=== PATIENT | male | born 1940 | race Caucasian/White ===

== ENCOUNTER 2024-05-10 12:30 | Outpatient (CLI) | payer MEDICARE, BC | END 2024-05-10 12:31 | disposition home or self-care (01) | LOC: CSHWCC 12:30 | PROVIDERS: ATTEND Nurse Practitioner Family | DX: N30.40 Irradiation cystitis without hematuria (principal) | CPT/HCPCS: 99213; G0463 ==

== ENCOUNTER 2024-05-31 14:11 | Outpatient (CLI) | payer MEDICARE, BC | END 2024-05-31 14:12 | disposition home or self-care (01) | LOC: CSHRAD 14:11 | PROVIDERS: ATTEND Internal Medicine Rheumatology | DX: M25.561 Pain in right knee (principal); M25.562 Pain in left knee; M11.261 Other chondrocalcinosis, right knee; M17.12 Unilateral primary osteoarthritis, left knee ==

== ENCOUNTER 2024-06-18 08:40 | Outpatient (CLI) | payer MEDICARE, BC | END 2024-06-18 08:41 | disposition home or self-care (01) | LOC: CSHWCC 08:40 | PROVIDERS: ATTEND Nurse Practitioner Family | DX: T70.0XXD Otitic barotrauma, subsequent encounter (principal); C61 Malignant neoplasm of prostate; N30.40 Irradiation cystitis without hematuria | CPT/HCPCS: 99212; G0463 ==

== ENCOUNTER 2024-06-22 10:11 | Outpatient (CLI) | payer MEDICARE, BC | END 2024-06-22 10:12 | disposition home or self-care (01) | LOC: CSHWCC 10:11 | PROVIDERS: ATTEND Nurse Practitioner Family | DX: T70.0XXD Otitic barotrauma, subsequent encounter (principal); C61 Malignant neoplasm of prostate; N30.40 Irradiation cystitis without hematuria | CPT/HCPCS: G0277 ==

== ENCOUNTER 2024-06-24 08:30 | Outpatient (CLI) | payer MEDICARE, BC | END 2024-06-24 08:31 | disposition home or self-care (01) | LOC: CSHWCC 08:30 | PROVIDERS: ATTEND Nurse Practitioner Family | DX: T70.0XXD Otitic barotrauma, subsequent encounter (principal); N30.40 Irradiation cystitis without hematuria; C61 Malignant neoplasm of prostate ==

== ENCOUNTER 2024-06-28 08:19 | Outpatient (CLI) | payer MEDICARE, BC | END 2024-06-28 08:20 | disposition home or self-care (01) | LOC: CSHWCC 08:19 | PROVIDERS: ATTEND Nurse Practitioner Family | DX: T70.0XXD Otitic barotrauma, subsequent encounter (principal); C61 Malignant neoplasm of prostate; N30.40 Irradiation cystitis without hematuria | CPT/HCPCS: G0277 ==

== ENCOUNTER 2024-06-29 08:53 | Outpatient (CLI) | payer MEDICARE, BC | END 2024-06-29 08:54 | disposition home or self-care (01) | LOC: CSHWCC 08:53 | PROVIDERS: ATTEND Nurse Practitioner Family | DX: T70.0XXD Otitic barotrauma, subsequent encounter (principal); C61 Malignant neoplasm of prostate; N30.40 Irradiation cystitis without hematuria | CPT/HCPCS: G0277 ==

== ENCOUNTER 2024-06-30 08:37 | Outpatient (CLI) | payer MEDICARE, BC | END 2024-06-30 08:38 | disposition home or self-care (01) | LOC: CSHWCC 08:37 | PROVIDERS: ATTEND Nurse Practitioner Family | DX: N30.40 Irradiation cystitis without hematuria (principal); C61 Malignant neoplasm of prostate | CPT/HCPCS: G0277 ==

== ENCOUNTER 2024-07-01 09:17 | Outpatient (CLI) | payer MEDICARE, BC | END 2024-07-01 09:18 | disposition home or self-care (01) | LOC: CSHWCC 09:17 | PROVIDERS: ATTEND Nurse Practitioner Family | DX: C61 Malignant neoplasm of prostate (principal); N30.40 Irradiation cystitis without hematuria | CPT/HCPCS: G0277 ==

== ENCOUNTER 2024-07-02 08:46 | Outpatient (CLI) | payer MEDICARE, BC | END 2024-07-02 08:47 | disposition home or self-care (01) | LOC: CSHWCC 08:46 | PROVIDERS: ATTEND Nurse Practitioner Family | DX: N30.40 Irradiation cystitis without hematuria (principal); C61 Malignant neoplasm of prostate | CPT/HCPCS: G0277 ==

== ENCOUNTER 2024-07-12 13:41 | Outpatient (CLI) | payer MEDICARE, BC | END 2024-07-12 13:42 | disposition home or self-care (01) | LOC: CSHWCC 13:41 | PROVIDERS: ATTEND Nurse Practitioner Family | DX: N30.40 Irradiation cystitis without hematuria (principal); C61 Malignant neoplasm of prostate | CPT/HCPCS: G0277 ==

== ENCOUNTER 2024-07-22 08:27 | Outpatient (CLI) | payer MEDICARE, BC | END 2024-07-22 08:28 | disposition home or self-care (01) | LOC: CSHWCC 08:27 | PROVIDERS: ATTEND Nurse Practitioner Family | DX: N30.40 Irradiation cystitis without hematuria (principal); C61 Malignant neoplasm of prostate | CPT/HCPCS: G0277 ==

== ENCOUNTER 2024-07-23 10:04 | Outpatient (CLI) | payer MEDICARE, BC | END 2024-07-23 10:05 | disposition home or self-care (01) | LOC: CSHWCC 10:04 | PROVIDERS: ATTEND Nurse Practitioner Family | DX: N30.40 Irradiation cystitis without hematuria (principal); C61 Malignant neoplasm of prostate ==

== ENCOUNTER 2024-07-26 09:27 | Outpatient (CLI) | payer MEDICARE, BC | END 2024-07-26 09:28 | disposition home or self-care (01) | LOC: CSHWCC 09:27 | PROVIDERS: ATTEND Nurse Practitioner Family | DX: C61 Malignant neoplasm of prostate (principal); N30.40 Irradiation cystitis without hematuria | CPT/HCPCS: G0277 ==

== ENCOUNTER 2024-07-27 08:39 | Outpatient (CLI) | payer MEDICARE, BC | END 2024-07-27 08:40 | disposition home or self-care (01) | LOC: CSHWCC 08:39 | PROVIDERS: ATTEND Nurse Practitioner Family | DX: N30.40 Irradiation cystitis without hematuria (principal); C61 Malignant neoplasm of prostate | CPT/HCPCS: G0277 ==

== ENCOUNTER 2024-08-03 10:00 | Outpatient (CLI) | payer MEDICARE, BC | END 2024-08-03 10:01 | disposition home or self-care (01) | LOC: CSHWCC 10:00 | PROVIDERS: ATTEND Nurse Practitioner Family | DX: N30.40 Irradiation cystitis without hematuria (principal); C61 Malignant neoplasm of prostate | CPT/HCPCS: G0277 ==